=== PATIENT | female | born 1970 | race Caucasian/White ===

== ENCOUNTER 2016-06-02 08:00 | Outpatient (CLI) ==
[2016-06-02] MEDS ORDERED: INFED 1,000 MG in SODIUM CHLORIDE 500 ML IV STA (08:23)
[2016-06-02] MEDS ORDERED: INFED IVP STA (08:24)
[2016-06-02 13:30] VITALS: BP 130/73; TEMP 96.8
== END 2016-06-02 08:01 | disposition home or self-care (01) ==
LOC: OPMED 08:00
PROVIDERS: ATTEND Family Medicine
DX: D50.9 Iron deficiency anemia, unspecified (principal); E61.1 Iron deficiency
CPT/HCPCS: 96365; 96366; 96374; 96376; 99211